=== PATIENT | male | born 1990 | race Caucasian/White ===

== ENCOUNTER 2020-07-22 16:26 | Emergency (ER) | payer MEDICAID ==
[~2020-07-22] VITALS: Ht 180.3 cm; Wt 83.9 kg
[2020-07-22 16:31] VITALS: BP_SYST 126
--- NOTE | 2020-07-22 16:35 | NUR ---
PATIENT AMBULATED TO BED 11.
--- NOTE | 2020-07-22 16:41 | NUR ---
PATIENT PRESENTS TO ED WITH ABSCESS ON RIGHT EAR X2D . PT STATES THAT HE HAS HAD TO HAVE IT DRAINED IN THE PAST . DENIES N/V/D; SKIN IS PINK/WARM/DRY; AAOX4 WITH EVEN AND STEADY GAIT; LUNGS CLEAR BL; HR EVEN AND REGULAR; PT DENIES ANY FEVER, CP, SOB, OR COUGH AT THIS TIME; PATIENT STATES PAIN OF 9/10 AT THIS TIME; VSS; PATIENT POSITIONED FOR COMFORT; HOB ELEVATED; BEDRAILS UP X2; BED DOWN. ER MD MADE AWARE OF PT STATUS.
[2020-07-22] MEDS ORDERED: PIPERACILLIN/TAZOBACTAM 3.375 GM in DEXTROSE 5% 50 ML IV ONE (16:45)
[2020-07-22] MEDS ORDERED: ONDANSETRON 4 MG/2 ML VIAL IVP ONE (16:45)
[2020-07-22] MEDS ORDERED: VANCOMYCIN 1,000 MG in DEXTROSE 5% 250 ML IV ONE (16:45)
[2020-07-22] MEDS ORDERED: INSULIN REGULAR, HUMAN 100 UNIT/ML VIAL SUBQ ONE (16:45)
[2020-07-22] MEDS ORDERED: MORPHINE SULFATE 4 MG/ML SYR IVP ONE (16:45)
[2020-07-22] MEDS ORDERED: NACL 0.9% 1,000 ML IV ONE ×2 (17:00→18:15)
--- NOTE | 2020-07-22 17:08 | NUR ---
BLOOD DRAWN AND GIVEN TO SLASHER TENDER
--- NOTE | 2020-07-22 17:10 | NUR ---
TO CT VIA W/C.
[2020-07-22] MEDS ORDERED: PIPERACILLIN/TAZOBACTAM 3.375 GM VIAL IV ONE (17:11)
[2020-07-22 17:16] LABS: BASOPHILS # (AUTO) 0.1 K/uL (0.00-0.22); BASOPHILS % (AUTO) 0.6 % (0.0-2.0); EOSINOPHILS # (AUTO) 0.3 K/uL (0-0.4); EOSINOPHILS % (AUTO) 2.1 % (0.0-4.0); HEMATOCRIT 38.8 % (36-52); HEMOGLOBIN 13.4 g/dL (12.0-18.0); LYMPHOCYTES # (AUTO) 1.4 K/uL (2.0-11.5); LYMPHOCYTES % (AUTO) 10.2 % (20.5-51.1); MEAN CORPUSCULAR HEMOGLOBIN 33 pg (27-31); MEAN CORPUSCULAR HGB CONC 35 g/dL (33-37); MEAN CORPUSCULAR VOLUME 94.5 fL (80-94); MONOCYTES # (AUTO) 0.9 K/uL (0.8-1.0); MONOCYTES % (AUTO) 6.8 % (1.7-9.3); NEUTROPHILS # (AUTO) 11.1 K/uL (1.8-7.7); NEUTROPHILS % (AUTO) 80.3 % (42.2-75.2); PLATELET COUNT (AUTO) 370 K/uL (140-450); RED CELL DISTRIBUTION WIDTH 14.4 % (11.6-13.7); WHITE BLOOD COUNT (AUTO) 13.9 K/uL (4.8-10.8)
[2020-07-22] MEDS: NACL 0.9% 1,000 ML IV SCH ×3 (17:19→19:04)
[2020-07-22 17:25] LABS: ANION GAP 15.8 (8-16); CARBON DIOXIDE 25.8 mmol/L (21-32); CREATININE 1.1 mg/dL (0.6-1.3); POTASSIUM 3.6 mmol/L (3.5-5.1)
[2020-07-22] MEDS ORDERED: KETOROLAC 30 MG/ML VIAL IVP ONE (17:30)
[2020-07-22] MEDS ORDERED: LISI10TA11 PO (17:42)
[2020-07-22] MEDS ORDERED: SLIDE SUBQ (17:42)
[2020-07-22] MEDS ORDERED: GABA300C PO (17:42)
[2020-07-22] MEDS ORDERED: INSU100S22 SUBQ (17:42)
--- NOTE | 2020-07-22 18:02 | NUR ---
PT IN BED REQUESTING FOOD AND WATER. ADV PT THAT HE CANNOT HAVE ANYTHING. GAVE PT ICE CHIPS D/T HIM STATING THAT HE HAS A DRY MOUTH
[2020-07-22] MEDS ORDERED: VANCOMYCIN 1,000 MG VIAL ONE (18:05)
--- NOTE | 2020-07-22 18:23 | NUR ---
PT MOTHER CALLED FOR UPDATE ON PT. PT IS CURRENTLY ON THE PHONE WITH HIS MOTHER AT THIS TIME
--- NOTE | 2020-07-22 18:34 | NUR ---
COVID SWAB COMPLETED AND GIVEN TO INSURANCE POLICY CLERK
--- NOTE | 2020-07-22 19:16 | NUR ---
RECIEVED REPORT FROM NISHANT GREEN. TRANSFER OF CARE AT THIS TIME.
[2020-07-22] MEDS ORDERED: HYDROcodone/APAP 5/325 MG 1 TAB TAB PO ONE (19:30)
--- NOTE | 2020-07-22 19:30 | NUR ---
PAIN 05/04 ER MD MADE AWARE.
--- NOTE | 2020-07-22 20:02 | NUR ---
CALLED [facility] ER AND GAVE REPORT TO NISHANT DUMONT. [phone]
[2020-07-22 20:05] VITALS: BP 124/76
--- NOTE | 2020-07-22 20:05 | NUR ---
Patient to be transferred to [facility]. Is being transferred due to HIGHER LEVEL OF CARE. Receiving facility has accepting physician and available space. ER physician has signed transfer form. Patient or responsible alliance party has agreed to transfer and signed form. Patient belongings inventoried and will be sent with patient. Copy of nursing notes, lab reports, EKG, Physicians Orders and X-rays to be sent with patient. Report called to NISHANT DUMONT at receiving facility. ambulance service IN ROUTE for transfer. ETA is 30 MINS.
== END 2020-07-22 20:05 | disposition short-term general hospital (02) ==
LOC: MED 16:26
DX: H60.21 Malignant otitis externa, right ear (principal); E11.65 Type 2 diabetes mellitus with hyperglycemia; R65.20 Severe sepsis without septic shock; I10 Essential (primary) hypertension; Z79.899 Other long term (current) drug therapy; Z20.828 Contact with and (suspected) exposure to other viral communicable diseases
CPT/HCPCS: 36415; 70491; 80048; 83605; 85025; 85651; 86140; 87040; 87426; 96361; 96365; 96367; 96372; 96375; 99291; J1815; J1885; J2270; J2405; J2543; J3370; J7030; 99285

== ENCOUNTER 2020-09-15 19:42 | Emergency (ER) | payer MEDICAID ==
[~2020-09-15] VITALS: Ht 180.3 cm; Wt 81.6 kg
[~2020-09-15 19:42] MED LIST: GABA300C PO; INSU100S22 SUBQ; LISI10TA11 PO; SLIDE SUBQ
[2020-09-15 20:30] VITALS: BP 134/84
--- NOTE | 2020-09-15 20:33 | NUR ---
TO LOBBY A/W BED AMBULATORY
[2020-09-15 21:11] LABS: BASOPHILS # (AUTO) 0.1 K/uL (0.00-0.22); BASOPHILS % (AUTO) 1.2 % (0.0-2.0); EOSINOPHILS # (AUTO) 0.5 K/uL (0-0.4); HEMOGLOBIN 14.3 g/dL (12.0-18.0); LYMPHOCYTES # (AUTO) 3.4 K/uL (2.0-11.5); LYMPHOCYTES % (AUTO) 36.3 % (20.5-51.1); MEAN CORPUSCULAR HEMOGLOBIN 31 pg (27-31); MEAN CORPUSCULAR HGB CONC 34 g/dL (33-37); MEAN CORPUSCULAR VOLUME 91.7 fL (80-94); MONOCYTES # (AUTO) 0.6 K/uL (0.8-1.0); MONOCYTES % (AUTO) 6.3 % (1.7-9.3); NEUTROPHILS # (AUTO) 4.8 K/uL (1.8-7.7); NEUTROPHILS % (AUTO) 51.2 % (42.2-75.2); PLATELET COUNT (AUTO) 420 K/uL (140-450); RED BLOOD CELL COUNT(AUTO) 4.58 MIL/uL (4.20-6.10); RED CELL DISTRIBUTION WIDTH 13.9 % (11.6-13.7); WHITE BLOOD COUNT (AUTO) 9.5 K/uL (4.8-10.8)
[2020-09-15 21:32] LABS: ALBUMIN 4.4 g/dL (3.4-5.0); ANION GAP 13.4 (8-16); CARBON DIOXIDE 29.8 mmol/L (21-32); CREATININE 1.3 mg/dL (0.6-1.3); POTASSIUM 3.2 mmol/L (3.5-5.1); TOTAL BILIRUBIN 0.9 mg/dL (0.0-1.0)
--- NOTE | 2020-09-15 22:00 | NUR ---
PATIENT ELOPED FROM FACILITY. DISCHARGE INSTRUCTIONS NOT GIVEN TO PATIENT. DR. MORALES NOTIFIED.
== END 2020-09-15 22:00 | disposition left against medical advice (07) ==
LOC: MED 19:42
DX: E11.65 Type 2 diabetes mellitus with hyperglycemia (principal); I10 Essential (primary) hypertension; Z79.899 Other long term (current) drug therapy
CPT/HCPCS: 36415; 80053; 85025; 99283

== ENCOUNTER 2020-11-22 17:52 | Emergency (ER) | payer MEDICAID ==
[~2020-11-22] VITALS: Ht 180.3 cm; Wt 84.8 kg
[~2020-11-22 17:52] MED LIST changes: +LISI-486 PO; -LISI10TA11 PO
[2020-11-22 18:14] VITALS: BP 119/85
[2020-11-22] MEDS ORDERED: NACL 0.9% 1,000 ML IV ONE (18:40)
[2020-11-22] MEDS ORDERED: DOCU-299 PO (19:03)
[2020-11-22 19:09] VITALS: BP 119/85
== END 2020-11-22 19:10 | disposition home or self-care (01) ==
LOC: MED 17:52
DX: K92.1 Melena (principal); E11.9 Type 2 diabetes mellitus without complications; I10 Essential (primary) hypertension; F17.210 Nicotine dependence, cigarettes, uncomplicated; Z79.899 Other long term (current) drug therapy
CPT/HCPCS: 81002; 99282; J7030

== ENCOUNTER 2023-04-29 06:55 | Emergency (ER) | payer MEDICAID, OTHER ==
[~2023-04-29] VITALS: Ht 177.8 cm; Wt 84.1 kg
[~2023-04-29 06:55] MED LIST changes: +DOCU-299 PO
[2023-04-29 07:17] VITALS: BP 166/89; PULSE 122; RESP 20; TEMP 98.1; O2SAT 100
[2023-04-29] MEDS ORDERED: NACL 0.9% 1,000 ML IV ONE (07:40)
--- NOTE | 2023-04-29 07:52 | NUR ---
Dr. Beltran evaluating patient at bedside.
--- NOTE | 2023-04-29 07:57 | NUR ---
33 YEAR OLD MALE IN BED 8, REFUSING CARE AT THIS TIME. WAS SEEN BY ER MD MOTHER AT THE BEDSIDE, NAD NOTED.SITTNIG TALKING TO MOTHER.
[2023-04-29 08:18] VITALS: BP 166/89; PULSE 122; RESP 20; TEMP 98.1; O2SAT 100
--- NOTE | 2023-04-29 08:18 | NUR ---
PT WALKED OUT OF ER, DECLINED CARE, PER MOTHER STATES TO HAVE SCHIZOPHRENIA - HEARING VOICES,SOCIAL ANXIETY, HX OF METH USE. 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 ER MD TO SEND A RX TO PTS [facility] GIVEN BY PT. PT YAOD.
[2023-04-29] MEDS ORDERED: CIPR7.5S OT (08:21)
[2023-04-29] MEDS ORDERED: SULF-59 PO (08:21)
[2023-04-29] MEDS ORDERED: CEPH-588 PO (08:21)
== END 2023-04-29 08:18 | disposition left against medical advice (07) ==
LOC: MED 06:55
DX: H66.92 Otitis media, unspecified, left ear (principal); I10 Essential (primary) hypertension; Z79.899 Other long term (current) drug therapy
CPT/HCPCS: 82948; 99283